=== PATIENT | female | born 1995 | race Caucasian/White ===

== ENCOUNTER 2021-01-06 15:31 | Emergency (ER) | payer BC, MEDICAID ==
[~2021-01-06] VITALS: Ht 170.2 cm; Wt 60.8 kg
[2021-01-06 15:39] VITALS: BP_SYST 118
[2021-01-06] MEDS ORDERED: NAPR-1172 PO (17:25)
[2021-01-06 17:28] VITALS: BP_SYST 122
== END 2021-01-06 17:28 | disposition home or self-care (01) ==
LOC: SED 15:31
DX: M54.2 Cervicalgia (principal); M54.5 Low back pain; V49.69XA Unspecified car occupant injured in collision with other motor vehicles in traffic accident, initial encounter; Y93.89 Activity, other specified; Y92.89 Other specified places as the place of occurrence of the external cause; Y99.8 Other external cause status
CPT/HCPCS: 72040-TC; 72100-TC; 73590-TC; 81025; 99284